=== PATIENT | female | born 1960 | race African-American/Black ===

== ENCOUNTER 2018-11-12 05:14 | Inpatient (IN) | payer MEDICAID ==
[~2018-11-12] VITALS: Ht 165.1 cm; Wt 90.7 kg
[2018-11-12 06:02] LABS: BASOPHILS % 1.2 % (0.0-2.0); EOSINOPHILS % 2.7 % (0.0-5.0); HEMATOCRIT. 32.5 % (36.0-48.0); HEMOGLOBIN. 10.1 g/dL (12.0-16.0); LYMPHOCYTES % 23.9 % (20.0-50.0); MEAN CORPUSCULAR HEMOGLOBIN 22.4 pg (28.0-32.0); MEAN CORPUSCULAR VOLUME 72.1 fL (81.0-99.0); MEAN PLATELET VOLUME 7.2 fl (7.4-10.4); MONOCYTES % 8.3 % (2.0-8.0); NEUTROPHILS % 63.9 % (40.0-76.0); PLATELET 245 x1000/uL (130-400); RED BLOOD CELL COUNT 4.51 mill/uL (4.2-5.4); RED CELL DISTRIBUTION WIDTH 16.7 % (11.6-14.6)
[2018-11-12 06:08] LABS: CHLORIDE 104 mEq/L (98-107)
[2018-11-12] MEDS ORDERED: ALBUTEROL (0.083%) 2.5MG/3ML NEB HHN STA (06:15)
[2018-11-12 06:23] LABS: PROTHROMBIN TIME 10.1 sec (9.6-11.0)
[2018-11-12] MEDS ORDERED: ACETAMINOPHEN 650MG/20.3ML UDC PO ONE (07:45)
[2018-11-12] MEDS ORDERED: HYDRALAZINE 20MG/ML VIAL IV ONE (07:45)
[2018-11-12 08:10] VITALS: BP 189/71
[2018-11-12] MEDS ORDERED: DOCUSATE SODIUM 100MG CAPSULE PO PRN (09:15)
[2018-11-12] MEDS ORDERED: CLONIDINE 0.1MG TABLET PO PRN (09:15)
[2018-11-12] MEDS ORDERED: ONDANSETRON HCL 4MG/2ML INJ IV PRN (09:15)
[2018-11-12] MEDS ORDERED: GUAIFENESIN 200MG/10ML SUGAR FREE UDC PO PRN (09:15)
[2018-11-12] MEDS ORDERED: IPRATROPIUM/ALBUTEROL 0.5-3(2.5)MG/3ML NEB INH PRN (09:15)
[2018-11-12] MEDS ORDERED: DIPHENHYDRAMINE 50MG/ML VIAL IV PRN (09:15)
[2018-11-12] MEDS ORDERED: MAGNESIUM/ALUMINUM HYDROXIDE/SIMETHICONE 30ML UDC PO PRN (09:15)
[2018-11-12] MEDS ORDERED: HYDROCODONE/ACETAMINOPHEN 5/325MG TABLET PO PRN (09:15)
[2018-11-12] MEDS ORDERED: ACETAMINOPHEN 325MG TABLET PO PRN (09:15)
[2018-11-12 09:45] LABS: PHOSPHORUS 7.1 mg/dL (2.5-4.9)
[2018-11-12] MEDS ORDERED: CALCIUM ACETATE 667MG CAPSULE PO SCH ×2 (10:30→12:40)
== END 2018-11-12 11:18 | disposition left against medical advice (07) | DRG 194 ==
LOC: ER 05:15 → 8WST 06:58 → EDBEDREQTM 07:00 → EDBEDREQ 07:00 → ER 07:40 → ENRESERV 07:45 → ER 07:59 → 8WST 11:04
PROVIDERS: ADMIT Internal Medicine; ATTEND Internal Medicine
PROC: 5A1D70Z Performance of Urinary Filtration, Intermittent, Less than 6 Hours Per Day (ICD-10-PCS; principal; 2018-11-12)
DX: I13.2 Hypertensive heart and chronic kidney disease with heart failure and with stage 5 chronic kidney disease, or end stage renal disease (principal); N18.6 End stage renal disease; E44.1 Mild protein-calorie malnutrition; E83.39 Other disorders of phosphorus metabolism; J44.9 Chronic obstructive pulmonary disease, unspecified; E83.41 Hypermagnesemia; I50.9 Heart failure, unspecified; D63.1 Anemia in chronic kidney disease; Z68.33 Body mass index [BMI] 33.0-33.9, adult; I25.2 Old myocardial infarction; Z99.2 Dependence on renal dialysis
CPT/HCPCS: 36415; 71045; 83735; 83880; 84100; 84484; 93005; 94640; 96374; 99285; J0360; J7611